=== PATIENT | female | born 1945 | race Caucasian/White ===

== ENCOUNTER 2017-05-12 10:51 | Emergency (ER) | payer MEDICARE, OTHER ==
--- NOTE | 2017-05-12 10:57 | EDM.PDOC ---
ED HPI GENERAL MEDICAL PROBLEM - General Chief Complaint: Respiratory Problem Stated Complaint: Productive cough; fatigue Time Seen by Provider: 05/12/17 10:56 Source of Information: Reports: Patient, Old Records, RN, RN Notes Reviewed History Limitations: Reports: No Limitations - History of Present Illness INITIAL COMMENTS - FREE TEXT/NARRATIVE: Patient presents to the ED at [facility] with a persistent, productive cough , nausea, mild SOB, fatigue, and some weakness. Patient states her symptoms started a little over a week ago. She was seen on 05/08/2017 at [facility]. She was diagnosed with Bronchopneumonia and started on a ZPak. She was also given Robitussin AC and a Medrol Dos Power. S She states her symptoms have progressively gotten worse. She has not been sleeping well due to cough. No close contacts with similar symptoms. She is trying to stay hydrated. No chest pain. No abdominal pain. Patient states she had audible wheezing this morning so she took 2 puffs of Albuterol which seem to help. Headache Pain Score (Numeric/FACES): 4 - Related Data Allergies Allergy/AdvReac Type Severity Reaction Status Date / Time Penicillins Allergy Edema Verified 05/12/17 11:13 fentanyl AdvReac Nausea and Verified 05/12/17 11:13 Vomiting hydrocodone bitartrate AdvReac Nausea and Verified 05/12/17 11:13 [From Lorcet (hydrocodone)] Vomiting oxycodone HCl [From Percocet] AdvReac Nausea and Verified 05/12/17 11:13 Vomiting propoxyphene napsylate AdvReac Nausea and Verified 05/12/17 11:13 [From Darvocet-N] Vomiting tramadol HCl [From Ultram] AdvReac Nausea and Verified 05/12/17 11:13 Vomiting Home Meds: Home Meds Acetaminophen [Pain Relief] 325 mg PO Q4H PRN 06/08/15 [History] Acetic Acid/Hydrocortisone [Hydrocortison-Acetic Acid Soln] 3 - 4 drop EARBOTH ASDIRECTED PRN 06/08/15 [History] Calcium Carbonate [Calcium] 600 mg PO BID 06/08/15 [History] Cholecalciferol (Vitamin D3) [Vitamin D3] 1,000 unit PO DAILY 06/08/15 [History] Dextran 70/Hypromellose [Artificial Tears] 1 drop EYEBOTH ASDIRECTED PRN [History] Docusate Sodium [Colace] 200 mg PO BEDTIME PRN 06/08/15 [History] Fish Oil/[place]-3 Fatty Acids [Fish Oil] 1,000 mg PO DAILY 06/08/15 [History] Fluticasone Propionate [Flonase] 1 spray NASBOTH BID 06/08/15 [History] Gabapentin [Neurontin] 100 mg PO BEDTIME 06/08/15 [History] Gemfibrozil [Lopid] 600 mg PO BIDAC 06/08/15 [History] Ketotifen Fumarate [Zaditor] 1 drop EYEBOTH BID PRN 06/08/15 [History] Metoclopramide [Reglan] 10 mg PO DAILY PRN 06/08/15 [History] Olopatadine HCl [Pataday] 1 drop EYEBOTH DAILY 06/08/15 [History] Omeprazole [Prilosec] 20 mg PO BEDTIME 06/08/15 [History] Phentermine HCl [Adipex-P] 18.75 mg PO DAILY 06/08/15 [History] Potassium Chloride [Klor-Con M20] 20 meq PO DAILY 06/08/15 [History] Ranitidine [Zantac] 150 mg PO BID PRN 06/08/15 [History] SUMAtriptan [Imitrex] 25 mg PO ASDIRECTED PRN 06/08/15 [History] Triamterene/Hydrochlorothiazid [Dyazide 37.5-25] 1 cap PO DAILY 06/08/15 [ History] Vitamin B Complex [B Complex] 1 each PO DAILY 06/08/15 [History] tiZANidine HCl [Zanaflex] 2 mg PO TID PRN 06/08/15 [History] Azithromycin [IMW: Azithromycin] 250 mg PO DAILY #4 tab 01/08/16 [Rx] Albuterol [IJP: Albuterol] 1 ampule INH Q4HWA PRN #1 box 05/12/17 [Rx] Nebulizer Accessories [Mouthpiece] 1 each MC ASDIRECTED #1 each 05/12/17 [Rx] Nebulizer [Compact Compressor Nebulizer] 1 each MC ASDIRECTED #1 kit 05/12/17 [ Rx] Topiramate [Topiramate] 100 mg PO BID 05/12/17 [History] Past Medical History HEENT History: Reports: Allergic Rhinitis, Cataract Cardiovascular History: Reports: Blood Clots/VTE/DVT, High Cholesterol, Hypertension Other Cardiovascular History: VALVULAR HEART DISEASE. BILATERAL CAROTID ARTERY DISEASE. CHEST PAIN Respiratory History: Reports: None Gastrointestinal History: Reports: Cholelithiasis, Diverticulosis, GERD Genitourinary History: Reports: None Other OB/BYN History: OVARIAN CYST. ENDOMETRIAL HYPERPLASIA Musculoskeletal History: Reports: Back Pain, Chronic, Osteoarthritis Other Musculoskeletal History: IMPINGEMENT SYNDROME OF RIGHT SHOULDER. MYOFASCIAL PAIN. ANKLE PAIN. DISORDER OF BONE AND CARTILAGE Neurological History: Reports: Migraines, Neuropathy, Peripheral, Vertigo Other Neuro History: PARESTHESIA OF FOOT, BILATERAL Other Psychiatric History: INSOMNIA Endocrine/Metabolic History: Reports: Obesity/BMI 30+ Other Endocrine/Metabolic History: SYMPTOMATIC MENOPAUSAL OR FEMALE CLIMACTERIC STATES. HYPERGLYCEMIA Other Hematologic History: VITAMIN D DEFICIENCY Other Dermatologic History: SKIN LESION OF FACE - Past Surgical History HEENT Surgical History: Reports: Cataract Surgery Female Surgical History: Reports: Breast Biopsy Musculoskeletal Surgical History: Reports: Knee Replacement, Other (See Below) Social & Family History - Tobacco Use Smoking Status *Q: Former Smoker - Recreational Drug Use Recreational Drug Use: No ED ROS GENERAL - Review of Systems Review Of Systems: See Below Constitutional: Reports: Chills, Fatigue, Diaphoresis. Denies: Fever HEENT: Reports: Sinus Problem Respiratory: Reports: Shortness of Breath, Cough Cardiovascular: Denies: Chest Pain, Palpitations GI/Abdominal: Reports: Nausea. Denies: Abdominal Pain, Vomiting Skin: Reports: No Symptoms Neurological: Reports: No Symptoms. Denies: Dizziness, Headache ED EXAM, GENERAL - Physical Exam Exam: See Below Exam Limited By: No Limitations General Appearance: Alert, No Apparent Distress Eye Exam: Bilateral Eye: Normal Inspection Ears: Normal External Exam, Normal Canal, Normal TMs Ear Exam: Bilateral Ear: TM normal Throat/Mouth: Normal Inspection, Normal Oropharynx, No Airway Compromise, Other (dry mucous membranes) Neck: Supple Respiratory/Chest: No Respiratory Distress, Lungs Clear, Decreased Breath Sounds , Other (harsh cough) Cardiovascular: Normal Peripheral Pulses, Regular Rate, Rhythm Peripheral Pulses: 2+: Radial (L), Radial (R) GI/Abdominal: Normal Bowel Sounds, Soft, Non-Tender Neurological: Alert, Oriented Skin Exam: Warm, Dry, Intact, Normal Color, No Rash Course - Vital Signs Last Recorded V/S: Last Vital Signs Temp 37.3 C 05/12/17 11:00 Pulse 79 05/12/17 11:00 Resp 18 05/12/17 11:00 BP 147/65 H 05/12/17 11:00 Pulse Ox 92 L 05/12/17 11:00 - Orders/Labs/Meds Orders: Active Orders 24 hr Category Date Time Status RT Aerosol Therapy [RC] ASDIRECTED Care 05/12/17 11:25 Active Chest 2V [CR] Stat Exams 05/12/17 10:58 Taken CULTURE BLOOD [BC] Stat Lab 05/12/17 11:15 Received CULTURE BLOOD [BC] Stat Lab 05/12/17 11:20 Received UA W/MICROSCOPIC [URIN] Stat Lab 05/12/17 10:52 Received Lactated Ringers [Ringers, Lactated] 1,000 ml Med 05/12/17 12:01 Active IV ONETIME Sodium Chloride 0.9% [Saline Flush] Med 05/12/17 11:17 Active 10 ml FLUSH ASDIRECTED PRN Blood Culture x2 Reflex Set [OM.PC] Stat Oth 05/12/17 10:57 Ordered Peripheral IV Insertion Adult [OM.PC] Routine Oth 05/12/17 11:17 Ordered Medication Orders Lactated Ringer's (Ringers, Lactated) 1,000 mls @ 999 mls/hr IV ONETIME ONE Stop: 05/12/17 13:01 Sodium Chloride (Saline Flush) 10 ml FLUSH ASDIRECTED PRN PRN Reason: Keep Vein Open Last Admin: 05/12/17 11:38 Dose: 10 ml Labs: Laboratory Tests 05/12/17 05/12/17 05/12/17 Range/Units 11:15 11:15 11:15 WBC 8.3 (4.0-10.0) x10^3/uL RBC 4.73 (4.00-5.50) x10^6/uL Hgb 13.0 (12.0-16.0) g/dL Hct 42.4 (33.0-47.0) % MCV 89.6 (78.0-93.0) fL MCH 27.5 (26.0-32.0) pg MCHC 30.7 L (32.0-36.0) g/dL RDW Coeff of Jose E 17.0 H (10.0-15.0) % Plt Count 148 (130-400) x10^3/uL Add Manual Diff Yes Neutrophils % (Manual) 60 (50-80) % Band Neutrophils % 5 (0-6) % Lymphocytes % (Manual) 10 L (25-50) % Monocytes % (Manual) 13 H (2-11) % Eosinophils % (Manual) 7 H (0-4) % Metamyelocytes % 4 H (0) % Blast Cells % 1 H (0) % Sodium 142 (136-145) mmol/L Potassium 3.6 (3.5-5.1) mmol/L Chloride 105 (98-107) mmol/L Carbon Dioxide 26 (21-32) mmol/L BUN 22 H (7-18) mg/dL Creatinine 1.1 H (0.55-1.02) mg/dL Est Cr Clr Drug Dosing 38.24 mL/min Estimated GFR (MDRD) 49 Glucose 135 H (74-106) mg/dL Lactic Acid 2.1 H* (0.4-2.0) mmol/L Calcium 8.5 (8.5-10.1) mg/dL C-Reactive Protein 1.8 H (<=0.9) mg/dL NT-Pro-B Natriuret Pep (<=125) pg/mL 05/12/17 Range/Units 11:15 WBC (4.0-10.0) x10^3/uL RBC (4.00-5.50) x10^6/uL Hgb (12.0-16.0) g/dL Hct (33.0-47.0) % MCV (78.0-93.0) fL MCH (26.0-32.0) pg MCHC (32.0-36.0) g/dL RDW Coeff of Jose E (10.0-15.0) % Plt Count (130-400) x10^3/uL Add Manual Diff Neutrophils % (Manual) (50-80) % Band Neutrophils % (0-6) % Lymphocytes % (Manual) (25-50) % Monocytes % (Manual) (2-11) % Eosinophils % (Manual) (0-4) % Metamyelocytes % (0) % Blast Cells % (0) % Sodium (136-145) mmol/L Potassium (3.5-5.1) mmol/L Chloride (98-107) mmol/L Carbon Dioxide (21-32) mmol/L BUN (7-18) mg/dL Creatinine (0.55-1.02) mg/dL Est Cr Clr Drug Dosing mL/min Estimated GFR (MDRD) Glucose (74-106) mg/dL Lactic Acid (0.4-2.0) mmol/L Calcium (8.5-10.1) mg/dL C-Reactive Protein (<=0.9) mg/dL NT-Pro-B Natriuret Pep 72 (<=125) pg/mL Meds: Medications Generic Name Dose Route Start Last Admin Trade Name Freq PRN Reason Stop Dose Admin Lactated Ringer's 1,000 mls @ 999 mls/hr 05/12/17 12:01 Ringers, Lactated IV 05/12/17 13:01 ONETIME ONE Sodium Chloride 10 ml 05/12/17 11:17 05/12/17 11:38 Saline Flush FLUSH 10 ml ASDIRECTED PRN Administration Keep Vein Open Discontinued Medications Generic Name Dose Route Start Last Admin Trade Name Freq PRN Reason Stop Dose Admin Levalbuterol HCl 1.25 mg 05/12/17 11:24 05/12/17 11:31 Xopenex NEB 05/12/17 11:25 1.25 mg ONETIME ONE Administration Methylprednisolone Sodium Succinate 125 mg 05/12/17 11:25 05/12/17 11:36 Solu-Medrol IVPUSH 05/12/17 11:26 125 mg ONETIME ONE Administration Ondansetron HCl 4 mg 05/12/17 11:31 Zofran IVPUSH 05/12/17 11:32 ONETIME ONE Departure - Departure Time of Disposition: 12:11 Disposition: Home, Self-Care 01 Condition: Good Clinical Impression: Dehydration Asthma Qualifiers: Asthma severity: mild Asthma persistence: intermittent Asthma complication type : unspecified Qualified Code(s): J45.20 - Mild intermittent asthma, uncomplicated Acute bronchitis Qualifiers: Bronchitis organism: unspecified organism Qualified Code(s): J20.9 - Acute bronchitis, unspecified - Discharge Information Prescriptions: Albuterol [IJP: Albuterol] 1 ampule INH Q4HWA PRN #1 box PRN Reason: Wheezing Nebulizer [Compact Compressor Nebulizer] 1 each ASDIRECTED #1 kit Nebulizer Accessories [Mouthpiece] 1 each ASDIRECTED #1 each Instructions: Asthma, Adult, Dehydration, Adult, Acute Bronchitis, Adult Referrals: Jenni Gagnon MD [Primary Care Provider] - Forms: ED Department Discharge Additional Instructions: 1. Stay well hydrated and rest 2. Nebs every 4 hours for the next 2 days, then as needed 3. Continue using cough syrup 4. Finish medications prescribed from [facility] 5. See your Primary as symptoms warrant 6. Call with any questions or concerns, we care about your health!! - Problem List Review Problem List Initiated/Reviewed/Updated: Yes - My Orders Last 24 Hours: My Active Orders 05/12/17 10:52 UA W/MICROSCOPIC [URIN] Stat 05/12/17 10:57 Blood Culture x2 Reflex Set [OM.PC] Stat 05/12/17 10:58 Chest 2V [CR] Stat 05/12/17 11:15 CULTURE BLOOD [BC] Stat 05/12/17 11:17 Sodium Chloride 0.9% [Saline Flush] 10 ml FLUSH ASDIRECTED PRN Peripheral IV Insertion Adult [OM.PC] Routine 05/12/17 11:20 CULTURE BLOOD [BC] Stat 05/12/17 11:25 RT Aerosol Therapy [RC] ASDIRECTED 05/12/17 12:01 Lactated Ringers [Ringers, Lactated] 1,000 ml IV ONETIME - Assessment/Plan Last 24 Hours: My Active Orders 05/12/17 10:52 UA W/MICROSCOPIC [URIN] Stat 05/12/17 10:57 Blood Culture x2 Reflex Set [OM.PC] Stat 05/12/17 10:58 Chest 2V [CR] Stat 05/12/17 11:15 CULTURE BLOOD [BC] Stat 05/12/17 11:17 Sodium Chloride 0.9% [Saline Flush] 10 ml FLUSH ASDIRECTED PRN Peripheral IV Insertion Adult [OM.PC] Routine 05/12/17 11:20 CULTURE BLOOD [BC] Stat 05/12/17 11:25 RT Aerosol Therapy [RC] ASDIRECTED 05/12/17 12:01 Lactated Ringers [Ringers, Lactated] 1,000 ml IV ONETIME Assessment:: Acute Bronchitis Asthma Dehydration Plan: Patient does not meet sepsis criteria. Patient already on azithromycin, Robitussen AC, and medrol dos power. Will give 1L LR only due to CHF. Script of nebs given. Refill cough syrup. No criteria for admission and patient also declined.
[2017-05-12 11:03] VITALS: BP 147/65
[2017-05-12] MEDS ORDERED: Sodium Chloride 0.9% 10 ML Syringe FLUSH PRN (11:17)
[2017-05-12] MEDS ORDERED: Levalbuterol HCl 1.25 MG/0.5 ML Neb NEB ONE (11:24)
[2017-05-12] MEDS ORDERED: methylPREDNISolone Sodium Succinate 125 MG/2 ML SDV IVPUSH ONE (11:25)
[2017-05-12] MEDS ORDERED: Ondansetron 4 MG/2 ML SDV IVPUSH ONE (11:31)
[2017-05-12] MEDS ORDERED: Lactated Ringers 1,000 ML IV ONE (12:01)
== END 2017-05-12 13:46 | disposition home or self-care (01) ==
LOC: VM.ED 10:51
DX: J45.20 Mild intermittent asthma, uncomplicated (principal); J20.9 Acute bronchitis, unspecified; E86.0 Dehydration; Z87.891 Personal history of nicotine dependence; I10 Essential (primary) hypertension; E78.00 Pure hypercholesterolemia, unspecified; Z79.899 Other long term (current) drug therapy; Z88.5 Allergy status to narcotic agent; Z88.0 Allergy status to penicillin; Z88.8 Allergy status to other drugs, medicaments and biological substances
CPT/HCPCS: 36415; 71046; 80048; 81001; 83605; 83880; 85025; 86140; 87040; 94640; 96361; 96374; 99284; 99285; J2930; J7050; J7120

== ENCOUNTER 2017-06-04 17:04 | Emergency (ER) | payer MEDICARE, OTHER ==
[2017-06-04 17:52] VITALS: BP 136/70
[2017-06-04] MEDS ORDERED: Albuterol/Ipratropium 3.0-0.5 MG/3 ML Neb Soln NEB ONE (18:01)
[2017-06-04] MEDS ORDERED: Sodium Chloride 0.9% 10 ML Syringe FLUSH PRN (18:02)
[2017-06-04 18:58] LABS: CHLORIDE,CL 103 mmol/L (98-107); SODIUM,NA 140 mmol/L (136-145)
[2017-06-04] MEDS ORDERED: Levofloxacin 500 MG Tab PO ONE (19:16)
[2017-06-04] MEDS ORDERED: predniSONE 20 MG Tab PO ONE (19:17)
--- NOTE | 2017-06-04 19:32 | EDM.PDOC ---
ED HPI GENERAL MEDICAL PROBLEM - General Chief Complaint: Respiratory Problem Time Seen by Provider: 06/04/17 17:15 Source of Information: Reports: Patient History Limitations: Reports: No Limitations - History of Present Illness INITIAL COMMENTS - FREE TEXT/NARRATIVE: Pt. presents to ER with continued cough, chest congestion, intermittent fever, and sore throat. She has been seen in the clinic numerous times for this. She has been prescribed prednisone and azithromycin twice for presumed pneumonia and asthma. Pt. is scheduled to see pulmonology for her breathing issues. She denies any fever or chills. No weakness. States she is eating and drinking adequately. Shes not experiencing and nausea, vomiting, or diarrhea. Onset: Today Duration: Week(s): Location: Reports: Chest, Generalized Improves with: Reports: Rest Associated Symptoms: Reports: Cough, Shortness of Breath. Denies: cough w sputum - Related Data Allergies Allergy/AdvReac Type Severity Reaction Status Date / Time Penicillins Allergy Edema Verified 06/04/17 17:55 fentanyl AdvReac Nausea and Verified 06/04/17 17:55 Vomiting hydrocodone bitartrate AdvReac Nausea and Verified 06/04/17 17:55 [From Lorcet (hydrocodone)] Vomiting oxycodone HCl [From Percocet] AdvReac Nausea and Verified 06/04/17 17:55 Vomiting propoxyphene napsylate AdvReac Nausea and Verified 06/04/17 17:55 [From Darvocet-N] Vomiting tramadol HCl [From Ultram] AdvReac Nausea and Verified 06/04/17 17:55 Vomiting Home Meds: Home Meds Acetaminophen [Pain Relief] 650 mg PO Q4H PRN 06/08/15 [History] Acetic Acid/Hydrocortisone [Hydrocortison-Acetic Acid Soln] 3 - 5 drop EARBOTH ASDIRECTED PRN 06/08/15 [History] Calcium Carbonate [Calcium] 600 mg PO BID 06/08/15 [History] Cholecalciferol (Vitamin D3) [Vitamin D3] 1,000 unit PO DAILY 06/08/15 [History] Dextran 70/Hypromellose [Artificial Tears] 1 drop EYEBOTH Q4H PRN 06/08/15 [ History] Docusate Sodium [Colace] 200 mg PO BEDTIME PRN 06/08/15 [History] Fish Oil/[place]-3 Fatty Acids [Fish Oil] 1,000 mg PO DAILY 06/08/15 [History] Fluticasone Propionate [Flonase] 1 spray NASBOTH BID 06/08/15 [History] Gabapentin [Neurontin] 300 mg PO BID 06/08/15 [History] Gemfibrozil [Lopid] 600 mg PO BIDAC 06/08/15 [History] Ketotifen Fumarate [Zaditor] 1 drop EYEBOTH BID PRN 06/08/15 [History] Metoclopramide [Reglan] 10 mg PO DAILY PRN 06/08/15 [History] Olopatadine HCl [Pataday] 1 drop EYEBOTH DAILY 06/08/15 [History] Omeprazole [Prilosec] 20 mg PO BEDTIME 06/08/15 [History] Potassium Chloride [Klor-Con M20] 20 meq PO DAILY 06/08/15 [History] Ranitidine [Zantac] 150 mg PO BID PRN 06/08/15 [History] SUMAtriptan [Imitrex] 25 mg PO ASDIRECTED PRN 06/08/15 [History] Triamterene/Hydrochlorothiazid [Dyazide 37.5-25] 1 cap PO DAILY 06/08/15 [ History] tiZANidine HCl [Zanaflex] 2 mg PO TID PRN 06/08/15 [History] Albuterol [IJP: Albuterol] 1 ampule INH Q4HWA PRN #1 box 05/12/17 [Rx] Albuterol [Ventolin HFA] 2 puff INH Q4H PRN 05/12/17 [History] Amitriptyline [Elavil] 25 mg PO BEDTIME PRN 05/12/17 [History] Ciclopirox [[place] 8% Nail Lacquer] 1 applic TOP BEDTIME PRN 05/12/17 [History] Fluticasone/Vilanterol [Breo Ellipta 100-25 MCG Inhalation Kit] 1 inh IH DAILY 05/12/17 [History] Hydrochlorothiazide 25 mg PO DAILY PRN 05/12/17 [History] Nebulizer Accessories [Mouthpiece] 1 each MC ASDIRECTED #1 each 05/12/17 [Rx] Nebulizer [Compact Compressor Nebulizer] 1 each MC ASDIRECTED #1 kit 05/12/17 [ Rx] Topiramate 100 mg PO BID 05/12/17 [History] metFORMIN HCl [Metformin HCl ER] 1,000 mg PO DAILY 05/12/17 [History] Past Medical History HEENT History: Reports: Allergic Rhinitis, Cataract Cardiovascular History: Reports: Blood Clots/VTE/DVT, High Cholesterol, Hypertension Other Cardiovascular History: VALVULAR HEART DISEASE. BILATERAL CAROTID ARTERY DISEASE. CHEST PAIN Respiratory History: Reports: Asthma, Bronchitis, Recurrent Gastrointestinal History: Reports: Cholelithiasis, Diverticulosis, GERD Genitourinary History: Reports: None Other OB/BYN History: OVARIAN CYST. ENDOMETRIAL HYPERPLASIA Musculoskeletal History: Reports: Back Pain, Chronic, Osteoarthritis Other Musculoskeletal History: IMPINGEMENT SYNDROME OF RIGHT SHOULDER. MYOFASCIAL PAIN. ANKLE PAIN. DISORDER OF BONE AND CARTILAGE Neurological History: Reports: Migraines, Neuropathy, Peripheral, Vertigo Other Neuro History: PARESTHESIA OF FOOT, BILATERAL Other Psychiatric History: INSOMNIA Endocrine/Metabolic History: Reports: Obesity/BMI 30+ Other Endocrine/Metabolic History: SYMPTOMATIC MENOPAUSAL OR FEMALE CLIMACTERIC STATES. HYPERGLYCEMIA Other Hematologic History: VITAMIN D DEFICIENCY Other Dermatologic History: SKIN LESION OF FACE - Past Surgical History Head Surgeries/Procedures: Reports: None HEENT Surgical History: Reports: Cataract Surgery Female Surgical History: Reports: Breast Biopsy Musculoskeletal Surgical History: Reports: Knee Replacement, Other (See Below) Social & Family History - Tobacco Use Smoking Status *Q: Unknown Ever Smoked - Recreational Drug Use Recreational Drug Use: No ED ROS GENERAL - Review of Systems Review Of Systems: See Below Constitutional: Reports: Fever, Chills, Malaise HEENT: Reports: Rhinitis, Sinus Problem, Throat Pain Respiratory: Reports: Shortness of Breath, Wheezing, Cough Cardiovascular: Reports: No Symptoms Endocrine: Reports: No Symptoms GI/Abdominal: Reports: No Symptoms : Reports: No Symptoms Musculoskeletal: Reports: No Symptoms Skin: Reports: No Symptoms Neurological: Reports: No Symptoms Psychiatric: Reports: No Symptoms Hematologic/Lymphatic: Reports: No Symptoms Immunologic: Reports: No Symptoms ED EXAM, GENERAL - Physical Exam Exam: See Below Exam Limited By: No Limitations General Appearance: Alert, WD/WN, No Apparent Distress Eye Exam: Bilateral Eye: EOMI, Normal Fundi, Normal Inspection, PERRL Ears: Normal External Exam, Normal Canal, Hearing Grossly Normal, Normal TMs Ear Exam: Bilateral Ear: Auricle Normal, Canal Normal, TM normal Nose: Normal Inspection, Normal Mucosa, No Blood Throat/Mouth: Normal Inspection, Normal Lips, Normal Teeth, Normal Gums, Normal Oropharynx, Normal Voice, No Airway Compromise Head: Atraumatic, Normocephalic Neck: Normal Inspection, Supple, Non-Tender, Full Range of Motion Respiratory/Chest: No Accessory Muscle Use, Chest Non-Tender, Respiratory Distress (mild), Decreased Breath Sounds Cardiovascular: Normal Peripheral Pulses, Regular Rate, Rhythm, No Edema, No Gallop, No JVD, No Murmur, No Rub Peripheral Pulses: 3+: Radial (L), Radial (R) GI/Abdominal: Normal Bowel Sounds, Soft, Non-Tender, No Organomegaly, No Distention, No Abnormal Bruit, No Mass (Female) Exam: Deferred Rectal (Female) Exam: Deferred Back Exam: Normal Inspection, Full Range of Motion, NT Extremities: Normal Inspection, Normal Range of Motion, Non-Tender, Normal Capillary Refill, No Pedal Edema Neurological: Alert, Oriented, CN II-XII Intact, Normal Cognition, Normal Gait, Normal Reflexes, No Motor/Sensory Deficits Psychiatric: Normal Affect, Normal Mood Skin Exam: Warm, Dry, Intact, Normal Color, No Rash Lymphatic: No Adenopathy EKG INTERPRETATION Rhythm: NSR [place]: Normal P-Wave: Present QRS: Normal ST-T: Normal QT: Normal Course - Vital Signs Last Recorded V/S: Last Vital Signs Temp 37.1 C 06/04/17 17:15 Pulse 77 06/04/17 17:15 Resp 20 06/04/17 17:15 BP 136/70 06/04/17 17:15 Pulse Ox 90 L 06/04/17 17:15 - Orders/Labs/Meds Orders: Active Orders 24 hr Category Date Time Status EKG Documentation Completion [RC] STAT Care 06/04/17 18:02 Active RT Aerosol Therapy [RC] ASDIRECTED Care 06/04/17 18:03 Active RT Peak Flow Measurement [RC] ASDIRECTED Care 06/04/17 18:01 Active Chest 2V [CR] Stat Exams 06/04/17 18:02 Taken CULTURE BLOOD [BC] Stat Lab 06/04/17 18:12 Received CULTURE BLOOD [BC] Stat Lab 06/04/17 18:20 Received Sodium Chloride 0.9% [Saline Flush] Med 06/04/17 18:02 Active 10 ml FLUSH ASDIRECTED PRN Blood Culture x2 Reflex Set [OM.PC] Stat Oth 06/04/17 18:07 Ordered Peripheral IV Insertion Adult [OM.PC] Routine Oth 06/04/17 18:03 Ordered Medication Orders Sodium Chloride (Saline Flush) 10 ml FLUSH ASDIRECTED PRN PRN Reason: Keep Vein Open Labs: Laboratory Tests 06/04/17 06/04/17 06/04/17 Range/Units 18:12 18:12 18:12 WBC 5.3 (4.0-10.0) x10^3/uL RBC 4.33 (4.00-5.50) x10^6/uL Hgb 12.0 (12.0-16.0) g/dL Hct 38.8 (33.0-47.0) % MCV 89.6 (78.0-93.0) fL MCH 27.7 (26.0-32.0) pg MCHC 30.9 L (32.0-36.0) g/dL RDW Coeff of Jose E 17.5 H (10.0-15.0) % Plt Count 186 (130-400) x10^3/uL Add Manual Diff Yes Neutrophils % (Manual) 51 (50-80) % Band Neutrophils % 12 H (0-6) % Lymphocytes % (Manual) 29 (25-50) % Monocytes % (Manual) 3 (2-11) % Eosinophils % (Manual) 5 H (0-4) % Platelet Estimate Adequate PT 10.3 (9.8-11.8) SEC INR 1.0 L (2.0-3.5) Sodium 140 (136-145) mmol/L Potassium 3.8 (3.5-5.1) mmol/L Chloride 103 (98-107) mmol/L Carbon Dioxide 27 (21-32) mmol/L Anion Gap 13.8 (10-20) mmol/L BUN 11 (7-18) mg/dL Creatinine 1.1 H (0.55-1.02) mg/dL Est Cr Clr Drug Dosing TNP Estimated GFR (MDRD) 49 Glucose 99 (74-106) mg/dL Lactic Acid (0.4-2.0) mmol/L Calcium 8.7 (8.5-10.1) mg/dL Corrected Calcium 9.34 (8.5-10.1) mg/dL Phosphorus 3.4 (2.6-4.7) mg/dL Magnesium 2.0 (1.8-2.4) mg/dL Total Bilirubin 0.5 (0.2-1.0) mg/dL AST 44 H (15-37) U/L ALT 44 (14-59) U/L Alkaline Phosphatase 94 (46-116) U/L Troponin I < 0.017 (<=0.056) ng/mL C-Reactive Protein 3.4 H (<=0.9) mg/dL NT-Pro-B Natriuret Pep 704 H (<=125) pg/mL Total Protein 6.9 (6.4-8.2) g/dL Albumin 3.2 L (3.4-5.0) g/dL Globulin 3.7 Albumin/Globulin Ratio 0.86 04/17/18 Range/Units 18:12 WBC (4.0-10.0) x10^3/uL RBC (4.00-5.50) x10^6/uL Hgb (12.0-16.0) g/dL Hct (33.0-47.0) % MCV (78.0-93.0) fL MCH (26.0-32.0) pg MCHC (32.0-36.0) g/dL RDW Coeff of Jose E (10.0-15.0) % Plt Count (130-400) x10^3/uL Add Manual Diff Neutrophils % (Manual) (50-80) % Band Neutrophils % (0-6) % Lymphocytes % (Manual) (25-50) % Monocytes % (Manual) (2-11) % Eosinophils % (Manual) (0-4) % Platelet Estimate PT (9.8-11.8) SEC INR (2.0-3.5) Sodium (136-145) mmol/L Potassium (3.5-5.1) mmol/L Chloride (98-107) mmol/L Carbon Dioxide (21-32) mmol/L Anion Gap (10-20) mmol/L BUN (7-18) mg/dL Creatinine (0.55-1.02) mg/dL Est Cr Clr Drug Dosing Estimated GFR (MDRD) Glucose (74-106) mg/dL Lactic Acid 1.4 (0.4-2.0) mmol/L Calcium (8.5-10.1) mg/dL Corrected Calcium (8.5-10.1) mg/dL Phosphorus (2.6-4.7) mg/dL Magnesium (1.8-2.4) mg/dL Total Bilirubin (0.2-1.0) mg/dL AST (15-37) U/L ALT (14-59) U/L Alkaline Phosphatase (46-116) U/L Troponin I (<=0.056) ng/mL C-Reactive Protein (<=0.9) mg/dL NT-Pro-B Natriuret Pep (<=125) pg/mL Total Protein (6.4-8.2) g/dL Albumin (3.4-5.0) g/dL Globulin Albumin/Globulin Ratio Meds: Medications Generic Name Dose Route Start Last Admin Trade Name Freq PRN Reason Stop Dose Admin Sodium Chloride 10 ml 06/04/17 18:02 Saline Flush FLUSH ASDIRECTED PRN Keep Vein Open Discontinued Medications Generic Name Dose Route Start Last Admin Trade Name Freq PRN Reason Stop Dose Admin Albuterol/Ipratropium 3 ml 06/04/17 18:01 06/04/17 18:48 Duoneb 3.0-0.5 Mg/3 Ml NEB 06/04/17 18:02 3 ml ONETIME ONE Administration Levofloxacin 500 mg 06/04/17 19:16 Levaquin PO 06/04/17 19:17 ONETIME ONE Prednisone 60 mg 06/04/17 19:17 Prednisone PO 06/04/17 19:18 ONETIME ONE - Re-Assessments/Exams Free Text/Narrative Re-Assessment/Exam: 06/04/17 18:15 Pt. was given a duoneb breathing treatment. pre treatment peak flow was 75% of predicted. Post neb, her peak flow was 87% of predicted. Departure - Departure Time of Disposition: 19:39 Disposition: Home, Self-Care 01 Condition: Good Clinical Impression: Acute bronchiolitis, Acute asthma Asthma Qualifiers: Asthma severity: mild Asthma persistence: intermittent Asthma complication type : unspecified Qualified Code(s): J45.20 - Mild intermittent asthma, uncomplicated - Discharge Information Instructions: Asthma, Adult, Acute Bronchitis, Adult, [id number], Levofloxacin tablets, Heart Failure, Prednisone tablets Referrals: Jenni Gagnon MD [Primary Care Provider] - Forms: ED Department Discharge Additional Instructions: levaquin 500mg once daily for 7 days prednisone 60mg once daily for 7 days continue with nebulizers Follow-up in clinic in 10-14 days. Return to ER if you have any increased shortness of breath, weakness, or chest pain. - My Orders Last 24 Hours: My Active Orders 06/04/17 18:01 RT Peak Flow Measurement [RC] ASDIRECTED 06/04/17 18:02 EKG Documentation Completion [RC] STAT Chest 2V [CR] Stat Sodium Chloride 0.9% [Saline Flush] 10 ml FLUSH ASDIRECTED PRN 06/04/17 18:03 RT Aerosol Therapy [RC] ASDIRECTED Peripheral IV Insertion Adult [OM.PC] Routine 06/04/17 18:07 Blood Culture x2 Reflex Set [OM.PC] Stat 06/04/17 18:12 CULTURE BLOOD [BC] Stat 06/04/17 18:20 CULTURE BLOOD [BC] Stat - Assessment/Plan Last 24 Hours: My Active Orders 06/04/17 18:01 RT Peak Flow Measurement [RC] ASDIRECTED 06/04/17 18:02 EKG Documentation Completion [RC] STAT Chest 2V [CR] Stat Sodium Chloride 0.9% [Saline Flush] 10 ml FLUSH ASDIRECTED PRN 06/04/17 18:03 RT Aerosol Therapy [RC] ASDIRECTED Peripheral IV Insertion Adult [OM.PC] Routine 06/04/17 18:07 Blood Culture x2 Reflex Set [OM.PC] Stat 06/04/17 18:12 CULTURE BLOOD [BC] Stat 06/04/17 18:20 CULTURE BLOOD [BC] Stat
== END 2017-06-04 19:40 | disposition home or self-care (01) ==
LOC: VM.ED 17:04
DX: J21.9 Acute bronchiolitis, unspecified (principal); J45.20 Mild intermittent asthma, uncomplicated; I10 Essential (primary) hypertension; E78.00 Pure hypercholesterolemia, unspecified; Z88.0 Allergy status to penicillin; Z88.5 Allergy status to narcotic agent; Z88.8 Allergy status to other drugs, medicaments and biological substances; Z79.899 Other long term (current) drug therapy; Z79.84 Long term (current) use of oral hypoglycemic drugs
CPT/HCPCS: 36415; 71046; 80053; 83605; 83735; 83880; 84100; 84484; 85025; 85610; 86140; 87040; 93005; 99285; A9270-GY

== ENCOUNTER 2017-06-15 21:19 | Emergency (ER) | payer MEDICARE, OTHER ==
[2017-06-15] MEDS ORDERED: Furosemide 20 MG/2 ML VIAL IV ONE (21:36)
[2017-06-15] MEDS ORDERED: Albuterol/Ipratropium 3.0-0.5 MG/3 ML Neb Soln NEB ONE (21:36)
--- NOTE | 2017-06-15 21:36 | EDM.PDOC ---
ED HPI GENERAL MEDICAL PROBLEM - General Chief Complaint: Respiratory Problem Stated Complaint: dyspnea Time Seen by Provider: 06/15/17 21:22 Source of Information: Reports: Patient History Limitations: Reports: Respiratory Distress - History of Present Illness INITIAL COMMENTS - FREE TEXT/NARRATIVE: Patient comes into the emergency department tonight with shortness of breath. Patient was brought in by EMS. Patient states that after supper tonight at about 1800 she began to become short of breath. This is a chronic condition over the course of the past few months. She has been diagnosised with bronchospasms and asthma. However it has been slowly progressing. She does have appointment on Saturday with the digital photo printer in [place] to evaluate further recommendations regarding her treatment. Tonight the patient became so short of breath and was unable to continue with her activities of daily living. She is unable to speak full sentences. She had apparently call the ambulance because she could not drive herself. EMS states that the patient's oxygen levels were down in the low 80s. She was placed on 4 L of oxygen and transported to the emergency department. Patient's heart rate is also elevated up in the 120s. Patient was seen this last week in the clinic and was found to be put on steroids (since approx a month) and Levaquin ( completed day 4 today). She's also been frequenting in the ER course the last 2 months for similar episodes as of today. They have started her on multiple regimens of bronchodilators. Patient states that these have been helping however her respiratory concerns or getting worse. Tonight she states this is the worst that it has been. Patient does state that she has a cough she has been coughing up clear to yellow phlegm with it. She denies having a fever. However she does feel warm and sweaty today. She last took her DuoNeb at 3 PM today Headache Pain Score (Numeric/FACES): 8 - Related Data Allergies Allergy/AdvReac Type Severity Reaction Status Date / Time Penicillins Allergy Edema Verified 06/15/17 21:27 fentanyl AdvReac Nausea and Verified 06/15/17 21:27 Vomiting hydrocodone bitartrate AdvReac Nausea and Verified 06/15/17 21:27 [From Lorcet (hydrocodone)] Vomiting oxycodone HCl [From Percocet] AdvReac Nausea and Verified 06/15/17 21:27 Vomiting propoxyphene napsylate AdvReac Nausea and Verified 06/15/17 21:27 [From Darvocet-N] Vomiting tramadol HCl [From Ultram] AdvReac Nausea and Verified 06/15/17 21:27 Vomiting Home Meds: Home Meds Acetaminophen [Pain Relief] 650 mg PO Q4H PRN 06/08/15 [History] Acetic Acid/Hydrocortisone [Hydrocortison-Acetic Acid Soln] 3 - 5 drop EARBOTH ASDIRECTED PRN 06/08/15 [History] Calcium Carbonate [Calcium] 600 mg PO BID 06/08/15 [History] Cholecalciferol (Vitamin D3) [Vitamin D3] 1,000 unit PO DAILY 06/08/15 [History] Dextran 70/Hypromellose [Artificial Tears] 1 drop EYEBOTH Q4H PRN 06/08/15 [ History] Docusate Sodium [Colace] 200 mg PO BEDTIME PRN 06/08/15 [History] Fish Oil/[place]-3 Fatty Acids [Fish Oil] 1,000 mg PO DAILY 06/08/15 [History] Fluticasone Propionate [Flonase] 1 spray NASBOTH BID 06/08/15 [History] Gabapentin [Neurontin] 300 mg PO BID 06/08/15 [History] Gemfibrozil [Lopid] 600 mg PO BIDAC 06/08/15 [History] Ketotifen Fumarate [Zaditor] 1 drop EYEBOTH BID PRN 06/08/15 [History] Metoclopramide [Reglan] 10 mg PO DAILY PRN 06/08/15 [History] Olopatadine HCl [Pataday] 1 drop EYEBOTH DAILY 06/08/15 [History] Omeprazole [Prilosec] 20 mg PO BEDTIME 06/08/15 [History] Potassium Chloride [Klor-Con M20] 20 meq PO DAILY 06/08/15 [History] Ranitidine [Zantac] 150 mg PO BID PRN 06/08/15 [History] SUMAtriptan [Imitrex] 25 mg PO ASDIRECTED PRN 06/08/15 [History] Triamterene/Hydrochlorothiazid [Dyazide 37.5-25] 1 cap PO DAILY 06/08/15 [ History] tiZANidine HCl [Zanaflex] 2 mg PO TID PRN 06/08/15 [History] Albuterol [IJP: Albuterol] 1 ampule INH Q4HWA PRN #1 box 05/12/17 [Rx] Albuterol [Ventolin HFA] 2 puff INH Q4H PRN 05/12/17 [History] Amitriptyline [Elavil] 25 mg PO BEDTIME PRN 05/12/17 [History] Ciclopirox [[place] 8% Nail Lacquer] 1 applic TOP BEDTIME PRN 05/12/17 [History] Fluticasone/Vilanterol [Breo Ellipta 100-25 MCG Inhalation Kit] 1 inh IH DAILY 05/12/17 [History] Hydrochlorothiazide 25 mg PO DAILY PRN 05/12/17 [History] Nebulizer Accessories [Mouthpiece] 1 each ASDIRECTED #1 each 05/12/17 [Rx] Nebulizer [Compact Compressor Nebulizer] 1 each ASDIRECTED #1 kit 05/12/17 [ Rx] Topiramate 100 mg PO BID 05/12/17 [History] metFORMIN HCl [Metformin HCl ER] 1,000 mg PO DAILY 05/12/17 [History] Fluticasone/Vilanterol [Breo Ellipta 100-25 MCG Inhalation Kit] 1 puff INH DAILY 06/15/17 [History] Levofloxacin 1 tab PO DAILY 06/15/17 [History] predniSONE [Prednisone] 1 tab PO DAILY 06/15/17 [History] Past Medical History HEENT History: Reports: Allergic Rhinitis, Cataract Cardiovascular History: Reports: Blood Clots/VTE/DVT, High Cholesterol, Hypertension Other Cardiovascular History: VALVULAR HEART DISEASE. BILATERAL CAROTID ARTERY DISEASE. CHEST PAIN Respiratory History: Reports: Asthma, Bronchitis, Recurrent Gastrointestinal History: Reports: Cholelithiasis, Diverticulosis, GERD Genitourinary History: Reports: None Other OB/BYN History: OVARIAN CYST. ENDOMETRIAL HYPERPLASIA Musculoskeletal History: Reports: Back Pain, Chronic, Osteoarthritis Other Musculoskeletal History: IMPINGEMENT SYNDROME OF RIGHT SHOULDER. MYOFASCIAL PAIN. ANKLE PAIN. DISORDER OF BONE AND CARTILAGE Neurological History: Reports: Migraines, Neuropathy, Peripheral, Vertigo Other Neuro History: PARESTHESIA OF FOOT, BILATERAL Other Psychiatric History: INSOMNIA Endocrine/Metabolic History: Reports: Obesity/BMI 30+ Other Endocrine/Metabolic History: SYMPTOMATIC MENOPAUSAL OR FEMALE CLIMACTERIC STATES. HYPERGLYCEMIA Other Hematologic History: VITAMIN D DEFICIENCY Other Dermatologic History: SKIN LESION OF FACE - Past Surgical History Head Surgeries/Procedures: Reports: None HEENT Surgical History: Reports: Cataract Surgery Female Surgical History: Reports: Breast Biopsy Musculoskeletal Surgical History: Reports: Knee Replacement, Other (See Below) Social & Family History - Tobacco Use Smoking Status *Q: Unknown Ever Smoked - Recreational Drug Use Recreational Drug Use: No ED ROS GENERAL - Review of Systems Review Of Systems: See Below Constitutional: Reports: Chills, Malaise, Fatigue, Night Sweats, Diaphoresis HEENT: Reports: No Symptoms Respiratory: Reports: Shortness of Breath, Wheezing, Cough, Sputum Cardiovascular: Reports: Dyspnea on Exertion, Edema Endocrine: Reports: No Symptoms GI/Abdominal: Reports: No Symptoms : Reports: No Symptoms Musculoskeletal: Reports: No Symptoms Skin: Reports: No Symptoms Neurological: Reports: No Symptoms Psychiatric: Reports: No Symptoms Hematologic/Lymphatic: Reports: No Symptoms Immunologic: Reports: No Symptoms ED EXAM, GENERAL - Physical Exam Exam: See Below Exam Limited By: Respiratory Distress General Appearance: Alert, WD/WN, Anxious, Moderate Distress Head: Atraumatic, Normocephalic Neck: Normal Inspection, Supple, Non-Tender Respiratory/Chest: Respiratory Distress, Decreased Breath Sounds, Accessory Muscle Use Cardiovascular: Normal Peripheral Pulses, Tachycardia, Other (lower extremity edema 2+ bilateral ankle ) Peripheral Pulses: 1+: Posterior Tibial (L), Posterior Tibial (R), Dorsalis Pedis (L), Dorsalis Pedis (R), 2+: Popliteal (L), Popliteal (R) GI/Abdominal: Normal Bowel Sounds, Soft, Non-Tender, No Distention, No Abnormal Bruit Back Exam: Normal Inspection Extremities: Normal Inspection, Pedal Edema Neurological: Alert, Oriented, Normal Reflexes Psychiatric: Normal Affect, Normal Mood Skin Exam: Warm, Dry Course - Vital Signs Last Recorded V/S: Last Vital Signs Temp 36.4 C 06/15/17 21:22 Pulse 120 H 06/15/17 22:50 Resp 26 H 06/15/17 22:50 BP 152/83 H 06/15/17 22:50 Pulse Ox 92 L 06/15/17 22:50 - Orders/Labs/Meds Orders: Active Orders 24 hr Category Date Time Status EKG Documentation Completion [RC] URGENT Care 06/15/17 21:28 Active RT Aerosol Therapy [RC] ASDIRECTED Care 06/15/17 21:37 Active CTA Chest W WO Contrast [Ang Chest] [CT] Stat Exams 06/15/17 23:22 Ordered Chest wo Cont [CT] Stat Exams 06/15/17 21:28 Taken CULTURE BLOOD [BC] Stat Lab 06/15/17 23:36 Ordered CULTURE BLOOD [BC] Stat Lab 06/15/17 23:36 Ordered Heparin Sodium/0.45% NaCl [Heparin 25,000 Units in 1/2 Med 06/15/17 23:33 Ordered NS 500 ML] 25,000 units in 500 ml IV NOW Sodium Chloride 0.9% [Normal Saline] 1,000 ml Med 06/15/17 23:38 Ordered IV ONETIME Vancomycin 1 gm Med 06/15/17 23:37 Ordered Sodium Chloride 0.9% [Normal Saline] 250 ml IV ONETIME Blood Culture x2 Reflex Set [OM.PC] Stat Oth 06/15/17 23:36 Ordered Medication Orders Heparin Sodium/Sodium Chloride (Heparin 25,000 Units In 1/2 Ns 500 Ml) 25,000 units in 500 mls @ 20 mls/hr IV NOW STA; Protocol Stop: 06/17/17 00:32 Vancomycin HCl 1 gm/ Sodium (Chloride) 250 mls @ 250 mls/hr IV ONETIME ONE Stop: 06/16/17 00:36 Sodium Chloride (Normal Saline) 1,000 mls @ 1,000 mls/hr IV ONETIME ONE Stop: 06/16/17 00:37 Labs: Laboratory Tests 06/15/17 06/15/17 06/15/17 Range/Units 22:01 22:01 22:01 WBC 18.5 H (4.0-10.0) x10^3/uL RBC 5.33 (4.00-5.50) x10^6/uL Hgb 14.7 D (12.0-16.0) g/dL Hct 45.8 (33.0-47.0) % MCV 85.9 D (78.0-93.0) fL MCH 27.6 (26.0-32.0) pg MCHC 32.1 (32.0-36.0) g/dL RDW Coeff of Jose E 18.5 H (10.0-15.0) % Plt Count 200 (130-400) x10^3/uL Neut % (Auto) Can Filling Machine Operator Lymph % (Auto) Can Filling Machine Operator [place] % (Auto) Can Filling Machine Operator Eos % (Auto) Can Filling Machine Operator Baso % (Auto) Can Filling Machine Operator Add Manual Diff Yes Neutrophils % (Manual) 85 H (50-80) % Band Neutrophils % 1 (0-6) % Lymphocytes % (Manual) 3 L (25-50) % Monocytes % (Manual) 8 (2-11) % Basophils % (Manual) 1 (0-1) % Metamyelocytes % 1 H (0) % Myelocytes % 1 H (0) % Platelet Estimate Adequate Polychromasia 1+ slight H Anisocytosis 1+ slight H D-Dimer, Quantitative (<=0.58) mg/LFEU Sodium 139 (136-145) mmol/L Potassium 3.7 (3.5-5.1) mmol/L Chloride 100 (98-107) mmol/L Carbon Dioxide 27 (21-32) mmol/L Anion Gap 15.7 (10-20) mmol/L BUN 24 H (7-18) mg/dL Creatinine 1.5 H (0.55-1.02) mg/dL Est Cr Clr Drug Dosing TNP Estimated GFR (MDRD) 34 Glucose 168 H (74-106) mg/dL Lactic Acid 3.6 H* (0.4-2.0) mmol/L Calcium 8.8 (8.5-10.1) mg/dL Corrected Calcium 9.28 (8.5-10.1) mg/dL Total Bilirubin 0.4 (0.2-1.0) mg/dL AST 30 (15-37) U/L ALT 47 (14-59) U/L Alkaline Phosphatase 78 (46-116) U/L Troponin I 0.088 H* (<=0.056) ng/mL NT-Pro-B Natriuret Pep 336 H (<=125) pg/mL Total Protein 7.3 (6.4-8.2) g/dL Albumin 3.4 (3.4-5.0) g/dL Globulin 3.9 Albumin/Globulin Ratio 0.87 04/28/18 Range/Units 22:01 WBC (4.0-10.0) x10^3/uL RBC (4.00-5.50) x10^6/uL Hgb (12.0-16.0) g/dL Hct (33.0-47.0) % MCV (78.0-93.0) fL MCH (26.0-32.0) pg MCHC (32.0-36.0) g/dL RDW Coeff of Jose E (10.0-15.0) % Plt Count (130-400) x10^3/uL Neut % (Auto) Lymph % (Auto) [place] % (Auto) Eos % (Auto) Baso % (Auto) Add Manual Diff Neutrophils % (Manual) (50-80) % Band Neutrophils % (0-6) % Lymphocytes % (Manual) (25-50) % Monocytes % (Manual) (2-11) % Basophils % (Manual) (0-1) % Metamyelocytes % (0) % Myelocytes % (0) % Platelet Estimate Polychromasia Anisocytosis D-Dimer, Quantitative > 35.20 H (<=0.58) mg/LFEU Sodium (136-145) mmol/L Potassium (3.5-5.1) mmol/L Chloride (98-107) mmol/L Carbon Dioxide (21-32) mmol/L Anion Gap (10-20) mmol/L BUN (7-18) mg/dL Creatinine (0.55-1.02) mg/dL Est Cr Clr Drug Dosing Estimated GFR (MDRD) Glucose (74-106) mg/dL Lactic Acid (0.4-2.0) mmol/L Calcium (8.5-10.1) mg/dL Corrected Calcium (8.5-10.1) mg/dL Total Bilirubin (0.2-1.0) mg/dL AST (15-37) U/L ALT (14-59) U/L Alkaline Phosphatase (46-116) U/L Troponin I (<=0.056) ng/mL NT-Pro-B Natriuret Pep (<=125) pg/mL Total Protein (6.4-8.2) g/dL Albumin (3.4-5.0) g/dL Globulin Albumin/Globulin Ratio Meds: Medications Generic Name Dose Route Start Last Admin Trade Name Freq PRN Reason Stop Dose Admin Heparin Sodium/Sodium Chloride 25,000 units in 500 mls @ 20 mls/hr 06/15/17 23 :33 Heparin 25,000 Units In 1/2 Ns 500 Ml IV 06/17/17 00:32 NOW STA Protocol 1,000 UNITS/HR Vancomycin HCl 1 gm/ Sodium 250 mls @ 250 mls/hr 06/15/17 23:37 Chloride IV 06/16/17 00:36 ONETIME ONE Sodium Chloride 1,000 mls @ 1,000 mls/hr 06/15/17 23:38 Normal Saline IV 06/16/17 00:37 ONETIME ONE Discontinued Medications Generic Name Dose Route Start Last Admin Trade Name Nakia PRN Reason Stop Dose Admin Albuterol/Ipratropium 3 ml 06/15/17 21:36 06/15/17 21:25 Duoneb 3.0-0.5 Mg/3 Ml NEB 06/15/17 21:37 3 ml ONETIME ONE Administration Furosemide 20 mg 06/15/17 21:36 06/15/17 22:07 Lasix IV 06/15/17 21:37 20 mg ONETIME ONE Administration Heparin Sodium (Porcine) 4,000 units 06/15/17 23:33 Heparin Sodium IVPUSH 06/15/17 23:34 .BOLUS ONE Ketorolac Tromethamine 30 mg 06/15/17 22:05 Toradol IM 06/15/17 22:06 ONETIME ONE Warfarin Sodium 5 mg 06/16/17 20:00 Coumadin PO BEDTIME MARCEL Warfarin Sodium 5 mg 06/15/17 22:32 06/15/17 22:51 Coumadin PO 06/15/17 22:33 5 mg NOW STA Administration Departure - Departure Time of Disposition: 23:45 Disposition: DC/[facility]fer to [facility] 02 Clinical Impression: Atelectasis of right lung Respiratory failure Qualifiers: Chronicity: acute Respiratory failure complication: hypoxia Qualified Code(s): J96.01 - Acute respiratory failure with hypoxia Congestive heart failure Qualifiers: Heart failure type: unspecified Heart failure chronicity: acute on chronic Qualified Code(s): I50.9 - Heart failure, unspecified - Discharge Information Referrals: Jenni Gagnon MD [Primary Care Provider] - Forms: ED Department Discharge, Interfacility Transfer EMTALA - Problem List Review Problem List Initiated/Reviewed/Updated: Yes - My Orders Last 24 Hours: My Active Orders 06/15/17 21:28 EKG Documentation Completion [RC] URGENT Chest wo Cont [CT] Stat 06/15/17 21:37 RT Aerosol Therapy [RC] ASDIRECTED 06/15/17 23:22 CTA Chest W WO Contrast [Ang Chest] [CT] Stat 06/15/17 23:33 Heparin Sodium/0.45% NaCl [Heparin 25,000 Units in 1/2 NS 500 ML] 25,000 units in 500 ml IV NOW 06/15/17 23:36 CULTURE BLOOD [BC] Stat CULTURE BLOOD [BC] Stat Blood Culture x2 Reflex Set [OM.PC] Stat 06/15/17 23:37 Vancomycin 1 gm Sodium Chloride 0.9% [Normal Saline] 250 ml IV ONETIME 06/15/17 23:38 Sodium Chloride 0.9% [Normal Saline] 1,000 ml IV ONETIME - Assessment/Plan Last 24 Hours: My Active Orders 06/15/17 21:28 EKG Documentation Completion [RC] URGENT Chest wo Cont [CT] Stat 06/15/17 21:37 RT Aerosol Therapy [RC] ASDIRECTED 06/15/17 23:22 CTA Chest W WO Contrast [Ang Chest] [CT] Stat 06/15/17 23:33 Heparin Sodium/0.45% NaCl [Heparin 25,000 Units in 1/2 NS 500 ML] 25,000 units in 500 ml IV NOW 06/15/17 23:36 CULTURE BLOOD [BC] Stat CULTURE BLOOD [BC] Stat Blood Culture x2 Reflex Set [OM.PC] Stat 06/15/17 23:37 Vancomycin 1 gm Sodium Chloride 0.9% [Normal Saline] 250 ml IV ONETIME 06/15/17 23:38 Sodium Chloride 0.9% [Normal Saline] 1,000 ml IV ONETIME Assessment:: 1. SOB 2. Respiratory failure 3. Hypoxia 4. Elevated D-Dimer Plan: 1. Ct completed and results reviewed with the pt. Partial Right middle lobe atelectasis, Cholelithiasis -Chest x-ray reviewed that were completed in the clinic and in the ER 2. Duoneb completed in ER to help with respiratory failure 3. Lasix completed in ER for swelling of bilateral extremities and history of CHF 4. O2 applied for low oxygen levels pt requiring 4L NC to maintain sats of 90-91 % 5. Pt is currenty on Levaquin orally and did take todays dose at home 6. Due to the patients complexity will hold off on abx until speaking with [facility] for transfer and further recommendations 7. Coumadin 5mg Give orally for elevated D-dimer and suspicion of a pulmonary embolism and also low risk to kidney damage (pt's creatinine acutely elevated) 8. Pt is also already on steroids for the past month and did take todays dose. Will hold off on giving anymore at this time. 9. Consultation with Marli Roblero 22:50. They are at change of shift they will call back when available. Call back 23:15 recommendation is to hydrate pt and complete CTA and call back with finding. 23:30 Hospitalist call back recommended not completing CTA and start heparin bolus and drip and give 1 liter fluid. and transfer to higher level of acuity. 10. One set of blood cultures were drawn with labs will draw a second set and give vancomycin per Hospitalist recommendation.
[2017-06-15] MEDS ORDERED: Ketorolac 30 MG/ML SDV IM ONE (22:05)
[2017-06-15] MEDS ORDERED: Warfarin 5 MG Tab PO STA (22:32)
[2017-06-15 22:43] LABS: CHLORIDE,CL 100 mmol/L (98-107); SODIUM,NA 139 mmol/L (136-145)
[2017-06-15 22:51] VITALS: BP 152/83
[2017-06-15] MEDS ORDERED: Heparin Sodium 5,000 Units/ML Vial IVPUSH ONE (23:33)
[2017-06-15] MEDS ORDERED: Heparin Sodium/0.45% NaCl 25,000 UNITS/500 ML BAG IV STA (23:33)
[2017-06-15] MEDS ORDERED: Sodium Chloride 0.9% 1,000 ML IV ONE (23:38)
[2017-06-16] MEDS ORDERED: Warfarin 5 MG Tab PO SCH (20:00)
== END 2017-06-16 00:10 | disposition short-term general hospital (02) ==
LOC: VM.ED 21:19
DX: J96.01 Acute respiratory failure with hypoxia (principal); J98.11 Atelectasis; I11.0 Hypertensive heart disease with heart failure; I50.9 Heart failure, unspecified; J45.909 Unspecified asthma, uncomplicated; K21.9 Gastro-esophageal reflux disease without esophagitis; E78.00 Pure hypercholesterolemia, unspecified; E66.9 Obesity, unspecified; Z88.0 Allergy status to penicillin; Z88.5 Allergy status to narcotic agent; Z88.8 Allergy status to other drugs, medicaments and biological substances; Z79.899 Other long term (current) drug therapy; Z79.84 Long term (current) use of oral hypoglycemic drugs
CPT/HCPCS: 36415; 71250; 80053; 83605; 83880; 84484; 85025; 85379; 87040; 93005; 96374; 96375; 96376; 99285; A9270; J1644; J1885; J1940; J3370; J7030; J7050; 99284-GF

== ENCOUNTER 2021-06-15 18:47 | Observation (INO) | payer MEDICARE, OTHER ==
[2021-06-15] MEDS ORDERED: Ondansetron 4 MG/2 ML SDV IVPUSH ONE (19:22)
[2021-06-15] MEDS ORDERED: Meclizine 25 MG Tab PO ONE (19:54)
[2021-06-15 20:02] LABS: ANION GAP 15.9 mmol/L (5-15)
[2021-06-15] MEDS: Sodium Chloride 0.9% with KCl 40mEq/1,000 ML IV SCH (20:34)
[2021-06-15] MEDS ORDERED: Ondansetron 4 MG/2 ML SDV IV PRN (20:54)
[2021-06-15] MEDS ORDERED: Ondansetron 4 MG Tab.DIS PO PRN (20:54)
[2021-06-15] MEDS ORDERED: Acetaminophen 325 MG Tab PO PRN (20:54)
[2021-06-16] MEDS: Sodium Chloride 0.9% with KCl 40mEq/1,000 ML IV SCH (03:17)
[2021-06-16 06:20] VITALS: BP 141/66; PULSE 71
[2021-06-16 07:04] LABS: ANION GAP 12.4 mmol/L (5-15); CHLORIDE,CL 103 mmol/L (98-107); SODIUM,NA 140 mmol/L (136-145)
[2021-06-16] MEDS ORDERED: Albuterol HFA 18 Gm Inhaler INH PRN (08:36)
[2021-06-16] MEDS ORDERED: traMADol 50 MG Tab PO PRN (08:36)
[2021-06-16] MEDS: Meclizine 25 MG Tab PO SCH ×2 (08:43→08:45)
[2021-06-16] MEDS ORDERED: Hypromellose 0.3% Ophth Soln 15 ML Bottle EYEBOTH PRN (09:14)
[2021-06-16] MEDS ORDERED: SUMAtriptan 50 MG Tab PO PRN (09:19)
[2021-06-16] MEDS ORDERED: tiZANidine 4 MG Tab PO PRN (09:20)
[2021-06-16] MEDS ORDERED: Gabapentin 300 MG Cap PO SCH (09:30)
[2021-06-16] MEDS ORDERED: metFORMIN 500 MG Tab PO SCH ×2 (09:30→18:00)
[2021-06-16] MEDS ORDERED: Potassium Chloride 20 MEQ Tab.ER PO SCH (09:30)
[2021-06-16] MEDS ORDERED: Furosemide 20 MG Tab PO SCH (09:30)
[2021-06-16] MEDS ORDERED: Furosemide 40 MG Tab PO SCH ×2 (09:30)
[2021-06-16] MEDS ORDERED: Metoprolol Succinate 25 MG Tab.ER PO SCH (09:30)
[2021-06-16] MEDS ORDERED: atorvaSTATin 10 MG Tab PO SCH (21:00)
[2021-06-16] MEDS ORDERED: Warfarin 5 MG Tab PO SCH (21:00)
[2021-06-16] MEDS ORDERED: Magnesium Oxide 400 MG Tab PO SCH (21:00)
[2021-06-16] MEDS ORDERED: Nortriptyline 25 MG Cap PO SCH (21:00)
[2021-06-17] MEDS ORDERED: CALCIUM PHOSPHATE TRIB PO SCH (09:00)
[2021-06-17] MEDS ORDERED: Cholecalciferol (Vitamin D3) 25 MCG Tab PO SCH (09:00)
[2021-06-17] MEDS ORDERED: Multivitamins with Iron/Calcium/Folic Acid/Minerals Tab PO SCH (09:00)
[2021-06-17] MEDS ORDERED: Ketotifen 0.025% Ophth Soln 5 ML Bottle EYEBOTH SCH (09:00)
[2021-06-17] MEDS ORDERED: VIT D3 PO SCH (09:00)
[2021-06-17] MEDS ORDERED: Warfarin 2.5 MG, Warfarin 5 MG PO SCH ×2 (21:00)
== END 2021-06-16 10:35 | disposition home or self-care (01) ==
LOC: VM.ED 18:47 → VM.MS 20:45
PROVIDERS: ADMIT Physician Assistant Medical; ATTEND Physician Assistant Medical
DX: R42 Dizziness and giddiness (principal); I11.0 Hypertensive heart disease with heart failure; K76.0 Fatty (change of) liver, not elsewhere classified; I50.32 Chronic diastolic (congestive) heart failure; E78.00 Pure hypercholesterolemia, unspecified; K21.9 Gastro-esophageal reflux disease without esophagitis; E66.9 Obesity, unspecified; E11.9 Type 2 diabetes mellitus without complications; R11.2 Nausea with vomiting, unspecified; G47.33 Obstructive sleep apnea (adult) (pediatric); I27.20 Pulmonary hypertension, unspecified; G47.00 Insomnia, unspecified; Z88.0 Allergy status to penicillin; Z88.6 Allergy status to analgesic agent; Z88.5 Allergy status to narcotic agent; Z86.718 Personal history of other venous thrombosis and embolism; Z79.4 Long term (current) use of insulin; Z68.39 Body mass index [BMI] 39.0-39.9, adult; Z79.899 Other long term (current) drug therapy; Z79.84 Long term (current) use of oral hypoglycemic drugs; Z20.822 Contact with and (suspected) exposure to COVID-19
CPT/HCPCS: 36415; 70450; 80048; 80053; 81003; 82947; 83690; 85025; 86140; 96374; 99285-25; A9270-GY; J2405; J3360; J3480; U0002

== ENCOUNTER 2022-06-04 19:51 | Emergency (ER) | payer MEDICARE, OTHER ==
[2022-06-04 21:12] LABS: PTT,PARTIAL THROMBOPLSTIN TIME 34.1 SEC (23.6-33.6)
[2022-06-04 21:21] LABS: ANION GAP 16.8 mmol/L (5-15); CHLORIDE,CL 99 mmol/L (98-107); ESTIMATED GFR 58 mL/min (>=60); SODIUM,NA 139 mmol/L (136-145)
[2022-06-05 03:00] VITALS: BP 161/71; PULSE 82
== END 2022-06-04 23:56 | disposition home or self-care (01) ==
LOC: VM.ED 19:51
DX: S52.501A Unspecified fracture of the lower end of right radius, initial encounter for closed fracture (principal); S52.601A Unspecified fracture of lower end of right ulna, initial encounter for closed fracture; S01.81XA Laceration without foreign body of other part of head, initial encounter; I25.10 Atherosclerotic heart disease of native coronary artery without angina pectoris; I10 Essential (primary) hypertension; E78.00 Pure hypercholesterolemia, unspecified; J45.909 Unspecified asthma, uncomplicated; E66.9 Obesity, unspecified; Z88.0 Allergy status to penicillin; Z88.8 Allergy status to other drugs, medicaments and biological substances; Z88.5 Allergy status to narcotic agent; Z79.01 Long term (current) use of anticoagulants; Z79.899 Other long term (current) drug therapy; Z68.41 Body mass index [BMI] 40.0-44.9, adult; W19.XXXA Unspecified fall, initial encounter; Y92.009 Unspecified place in unspecified non-institutional (private) residence as the place of occurrence of the external cause
CPT/HCPCS: 12011; 29125; 36415; 70450; 70486; 73110-RT; 80053; 85025; 85610; 85730; 99284

== ENCOUNTER 2024-04-15 15:00 | Emergency (ER) | payer MEDICARE ==
[2024-04-15 15:13] VITALS: BP 144/50; PULSE 76
== END 2024-04-15 15:30 | disposition home or self-care (01) ==
LOC: VM.ED 15:00
DX: L03.115 Cellulitis of right lower limb (principal); I10 Essential (primary) hypertension; E78.00 Pure hypercholesterolemia, unspecified; I25.10 Atherosclerotic heart disease of native coronary artery without angina pectoris; E11.9 Type 2 diabetes mellitus without complications; Z88.6 Allergy status to analgesic agent; Z88.5 Allergy status to narcotic agent; Z88.8 Allergy status to other drugs, medicaments and biological substances; Z79.01 Long term (current) use of anticoagulants; Z79.899 Other long term (current) drug therapy; Z79.4 Long term (current) use of insulin; Z79.84 Long term (current) use of oral hypoglycemic drugs
CPT/HCPCS: 99283

== ENCOUNTER 2024-09-17 15:32 | Emergency (ER) | payer MEDICARE ==
[2024-09-17 15:38] VITALS: PULSE 78
[2024-09-17] MEDS: Ondansetron 4 MG Tab.DIS PO ONE (15:51)
[2024-09-17 15:59] LABS: BASOPHILS ABSOLUTE AUTO 0.1 x10^3/uL (0.0-0.2); BASOPHILS PERCENT AUTO 0.8 % (0.2-1.2); EOSINOPHILS ABSOLUTE AUTO 0.2 x10^3/uL (0.0-0.5); EOSINOPHILS PERCENT AUTO 3.2 % (0.0-4.0); IMMATURE GRAN ABSOLUTE AUTO 0.05 x10^3/uL (0.00-0.07); IMMATURE GRAN PERCENT AUTO 0.80 % (0.00-0.43); LYMPHOCYTES ABSOLUTE AUTO 0.8 x10^3/uL (1.0-4.8); LYMPHOCYTES PERCENT AUTO 13.3 % (25.0-50.0); MONOCYTES ABSOLUTE AUTO 0.6 x10^3/uL (0.0-0.8); MONOCYTES PERCENT AUTO 10.1 % (2.0-11.0); NEUTROPHILS ABSOLUTE AUTO 4.3 x10^3/uL (1.8-7.7); NEUTROPHILS PERCENT AUTO 71.8 % (50.0-80.0); PLATELET COUNT,PLT 114 x10^3/uL (130-400); RED BLOOD CELL COUNT 3.24 x10^6/uL (4.00-5.50)
[2024-09-17 16:09] LABS: WHITE BLOOD CELL COUNT,WBC 6.0 x10^3/uL (4.0-10.0)
[2024-09-17 16:19] LABS: A/G RATIO 0.91; ALANINE AMINOTRANSFERASE,ALT 25 U/L (14-59); ASPARTATE AMNIOTRANSFERASE,AST 32 U/L (15-37); BILIRUBIN TOTAL 0.8 mg/dL (0.2-1.0); BLOOD UREA NITROGEN,BUN 21 mg/dL (7-18); CARBON DIOXIDE,CO2 27 mmol/L (21-32); CHLORIDE,CL 103 mmol/L (98-107); CREATININE 1.5 mg/dL (0.55-1.02); GLUCOSE RANDOM 206 mg/dL (70-99); POTASSIUM,K 4.1 mmol/L (3.5-5.1); PROTEIN TOTAL,TP 6.1 g/dL (6.4-8.2); SODIUM,NA 141 mmol/L (136-145)
[2024-09-17 16:22] LABS: ESTIMATED GFR 35 mL/min (>=60)
[2024-09-17 16:51] LABS: APPEARANCE,URINE SLIGHTLY CLOUDY (CLEAR); GLUCOSE,URINE NEGATIVE (NEGATIVE); OCCULT BLOOD,URINE TRACE-INTACT (NEGATIVE)
[2024-09-17] MEDS: Lactated Ringers 1,000 ML IV ONE (17:00)
[2024-09-17 17:02] LABS: SQUAMOUS EPITHELIAL CELLS,UR MANY /HPF (NOT SEEN)
[2024-09-17 18:10] VITALS: BP 146/65
== END 2024-09-17 18:04 | disposition home or self-care (01) ==
LOC: VM.ED 15:32
DX: E86.0 Dehydration (principal); E78.00 Pure hypercholesterolemia, unspecified; I25.10 Atherosclerotic heart disease of native coronary artery without angina pectoris; I10 Essential (primary) hypertension; J45.909 Unspecified asthma, uncomplicated; E11.40 Type 2 diabetes mellitus with diabetic neuropathy, unspecified; Z88.6 Allergy status to analgesic agent; Z88.8 Allergy status to other drugs, medicaments and biological substances; Z88.5 Allergy status to narcotic agent; Z79.899 Other long term (current) drug therapy; Z79.4 Long term (current) use of insulin; Z79.82 Long term (current) use of aspirin
CPT/HCPCS: 36415; 80053; 81001; 82607; 82746; 83735; 85025; 96360; 99283; A9270; J7120